=== PATIENT | female | born 1995 | race Caucasian/White ===

== ENCOUNTER 2024-03-08 10:06 | Emergency (ER) | payer OTHER ==
[2024-03-08 10:23] VITALS: BP 114/72; O2SAT 99
--- NOTE | 2024-03-08 11:26 | ED Physician Documentation ---
PD HPI UPPER EXT INJURY - Stated complaint Stated Complaint: LT THUMB NAIL PUNCTURE - Chief complaint Chief Complaint: Trauma Ext - Additonal information Additional information: 29-year-old female presents emergency department for concerns of a nail gun injury to her left thumb. Patient does have artificial nails and accidentally impelled a 1 inch skinny nail from the [place] gun penetrating from the tip of her finger in between her fingernail and soft tissue. There is some mild oozing of blood coming from the tip of the ulnar aspect of the left thumbnail. She has full range of motion she says when she pulled the nail out it was very easy to pull out so unlikely that it hit the bone she is able to flex and extend the thumb without any pain or difficulty. Her fingernails intact and she believes that she is up-to-date with her tetanus shot. Patient is not immunocompromise. Patient is confident that she removed the entire Nail from finger with no remaining pieces. PD PAST MEDICAL HISTORY - Past Medical History Past Medical History: No - Past Surgical History Past Surgical History: Yes Ortho: Arthroscopic surgery - Present Medications Home Medications: Ambulatory Orders Medication Instructions Recorded Confirmed Omeprazole 40 mg PO DAILY 03/08/24 03/08/24 cephALEXin [Keflex] 500 mg PO Q6H 5 Days #28 cap 03/08/24 - Allergies Allergies/Adverse Reactions: Allergies Allergy/AdvReac Type Severity Reaction Status Date / Time No Known Drug Allergies Allergy Verified 03/08/24 10:21 - Social History Does the pt smoke?: No Smoking Status: Never smoker Does the pt drink ETOH?: No Does the pt have substance abuse?: No - Immunizations Immunizations are current?: Yes PD ED PE NORMAL - Vitals Vital signs reviewed: Yes - General General: Alert and oriented X 3, No acute distress, Well developed/nourished - Free text exam Free text exam: Left thumb: Full range of motion of left thumb with flexion extension at the MCP and MIP. Left thumbnail intact artificial fingernail intact artificial fingernail color is a clear pleural color is able to visualize that there is no subungual hematoma collecting underneath the left nailbed. No exit wound. Results - Vitals Vitals: Vital Signs - 24 hr 03/08/24 10:17 Temperature 36.7 C Heart Rate 64 Respiratory 16 Rate Blood Pressure 114/72 O2 Saturation 99 - Rads (name of study) Left hand fingers Relevant Findings:: Final report received, EMP independent interpretation of test, Other (No fractures of the bones) PD Medical Decision Making - ED course ED course: 29-year-old female presents emergency department for nailbed injury to her left thumb. Fingernail is intact bleeding has completely stopped. She washed with soap and water here in the emergency department we placed a small superficial layer of bacitracin and patient was taught how to manage wound at home was taught signs symptoms of infection to watch out for. X-ray does not reveal any bony involvement at this point in time I do believe patient needs to start on antibiotics. Tetanus shot was last updated about 3 months ago return precautions given signs symptoms of infection watch out for were talked to patient all questions answered patient safe for discharge. 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 Departure - Departure Disposition: 01 Home, Self Care Clinical Impression: Injury by nail gun Qualifiers: Encounter type: initial encounter Qualified Code(s): W29.4XXA - Contact with nail gun, initial encounter Condition: Good Instructions: Infec Wound Recognize Tx Prescriptions: cephALEXin [Keflex] 500 mg PO Q6H 5 Days #28 cap Comments: Thank you for trusting us with your care. As we discussed keep this wound clean and dry watch out for signs and symptoms of infection which include drainage that is yellow or green, fevers or chills, increased swelling of your left thumb, or any streaking going up your thumb. If you start to detect any of these signs of infection please Start the antibiotics that [facility] [place] if you have been on those antibiotics for 48 hours and you are not noticing any improvement in symptoms and I want you to come back to the emergency department for further evaluation. Forms: PCP List Discharge Date/Time: 03/08/24 12:10
[2024-03-08] MEDS: BACITRACIN ZINC OINT 1 PACKET TOP STA (12:02)
--- NOTE | 2024-03-08 12:18 | XRAY Report ---
PROCEDURE: Finger(s) LT INDICATIONS: Trauma TECHNIQUE: AP hand, 2 views of the first finger(s) acquired. COMPARISON: None. FINDINGS: Bones: No fractures or dislocations. No suspicious bony lesions. Soft tissues: No suspicious soft tissue calcifications or masses. No radiopaque foreign body. IMPRESSION: No visualized acute fracture or dislocation. However, occult injury cannot be excluded. Recommend naun rt interval imaging follow-up in 7-10 days as clinically indicated for additional evaluation. No radiopaque foreign body. Reviewed by: Fior Holman MD on 03/08/2024 12:17 PM PDT Approved by: Fior Holman MD on 03/08/2024 12:17 PM PDT Station ID: [id number]
== END 2024-03-08 12:10 | disposition home or self-care (01) ==
LOC: ED 10:06
DX: S61.032A Puncture wound without foreign body of left thumb without damage to nail, initial encounter (principal); W29.4XXA Contact with nail gun, initial encounter
CPT/HCPCS: 73140; 99283; 99284; A9270